=== PATIENT | male | born 1945 | race African-American/Black ===

== ENCOUNTER 2020-08-30 02:07 | Emergency (ER) | payer MEDICARE, MEDICAID ==
[~2020-08-30] VITALS: Ht 188 cm; Wt 78.0 kg
[2020-08-30 02:48] LABS: BASOPHILS % 0.4 % (0.0-2.0); EOSINOPHILS % 0.9 % (0.0-5.0); HEMATOCRIT. 43.5 % (42.0-52.0); HEMOGLOBIN. 14.5 g/dL (14.0-18.0); LYMPHOCYTES % 41.9 % (20.0-50.0); MEAN CORPUSCULAR HEMOGLOBIN 29.7 pg (28.0-32.0); MEAN CORPUSCULAR VOLUME 89.2 fL (80.0-94.0); MEAN PLATELET VOLUME 8.6 fl (7.4-10.4); MONOCYTES % 12.7 % (2.0-8.0); NEUTROPHILS % 44.1 % (40.0-76.0); PLATELET 194 x1000/uL (130-400); RED BLOOD CELL COUNT 4.88 mill/uL (4.7-6.1); RED CELL DISTRIBUTION WIDTH 13.4 % (11.6-14.6)
[2020-08-30 02:53] LABS: CLARITY URINE CLOUDY (CLEAR); COLOR URINE YELLOW (YELLOW); KETONES URINE NEGATIVE (NEGATIVE); LEUKOCYTE ESTERASE URINE 3+ (NEGATIVE); NITRITE URINE NEGATIVE (NEGATIVE); OCCULT BLOOD URINE 2+ (NEGATIVE); PH URINE 5.5 (4.5-8.0); PROTEIN URINE NEGATIVE (NEGATIVE); SPECIFIC GRAVITY URINE 1.005 (1.005-1.030); UROBILINOGEN URINE 0.2 E.U./dL (0.2-1.0)
[2020-08-30 02:55] LABS: CHLORIDE 103 mEq/L (98-107)
[2020-08-30] MEDS ORDERED: TAMS-11 PO (04:59)
[2020-08-30] MEDS ORDERED: CEFU250T59 PO (05:01)
[2020-08-30 05:18] VITALS: BP 129/67
== END 2020-08-30 05:31 | disposition home or self-care (01) ==
LOC: ER 02:07
DX: R33.9 Retention of urine, unspecified (principal); Z98.890 Other specified postprocedural states; I10 Essential (primary) hypertension
CPT/HCPCS: 36415; 51702; 80053; 81003; 85025; 87077; 87186; 99284; A4315